=== PATIENT | male | born 1970 | race Caucasian/White ===

== ENCOUNTER 2018-04-10 12:22 | Emergency (ER) | payer BC ==
[~2018-04-10] VITALS: Ht 172.7 cm; Wt 63.5 kg
[2018-04-10 12:37] VITALS: Ht 172.7 cm; Wt 63.5 kg
[2018-04-10 13:54] VITALS: BP 1169/69
== END 2018-04-10 13:54 | disposition home or self-care (01) ==
LOC: ED 12:22
DX: S39.012A Strain of muscle, fascia and tendon of lower back, initial encounter (principal); M41.9 Scoliosis, unspecified; F32.9 Major depressive disorder, single episode, unspecified; Z98.890 Other specified postprocedural states; X58.XXXA Exposure to other specified factors, initial encounter; Y93.89 Activity, other specified; Y92.89 Other specified places as the place of occurrence of the external cause; Y99.8 Other external cause status
CPT/HCPCS: J1885